=== PATIENT | female | born 1955 | race Asian ===

== ENCOUNTER → 2016-08-13 | Outpatient (CLI) | payer MEDICARE, MEDICAID | LOC: WI 13:35 | PROVIDERS: ATTEND Internal Medicine | DX: Z12.31 Encounter for screening mammogram for malignant neoplasm of breast (principal) | CPT/HCPCS: 77067; G0202 ==

== ENCOUNTER → 2017-08-21 | Outpatient (CLI) | payer MEDICARE, MEDICAID ==
--- NOTE | 2017-08-25 15:26 | WOMENS IMAGING REPORT ---
EXAM DESCRIPTION: 3D SCREENING MAMMO BILAT COMPLETED DATE/TIME: 08/21/2017 10:02 am REASON FOR STUDY: ROUTINE SCREENING;Z12.31 Z12.31 ENCNTR SCREEN MAMMOGRAM FOR MALIGNANT NEOPLASM OF HOOD COMPARISON: 2010 to 2016 TECHNIQUE: Standard craniocaudal and mediolateral oblique views of each breast recorded using digita l acquisition and breast tomosynthesis. LIMITATIONS: None. FINDINGS: No masses, calcifications or architectural distortion. No areas of suspicion. Read with the assistance of CAD. .[facility] - R2 Cenova Version 1.3 .[facility] Imaging - R2 Cenova Version 1.3 .[facility] - R2 Cenova Version 2.4 .[facility] [place] - R2 Cenova Version 2.4 .[facility] - R2 [employer] Specialist Version 9.2 IMPRESSION: NORMAL MAMMOGRAM. BIRADS 1. BREAST DENSITY: b. There are scattered areas of fibroglandular density. BIRAD: 1 NEGATIVE RECOMMENDATION: ROUTINE SCREENING COMMENT: The patient has been notified of the results by letter per SA requirements. Additional no tification policies are in place for contacting patient with suspicious or incomplete findings. Quality ID #225: The [employer] recommends an annual screening mammogram for women aged 40 years or over. This facility utilizes a reminder system to ensure that all patients receive reminder letters, and/or direct phone calls for appointments. This includes reminders for routine scr eening mammograms, diagnostic mammograms, or other Breast Imaging Interventions when appropriate. Th is patient will be placed in the appropriate reminder system. The [employer] [employer] (ACR) has developed recommendations for screening MRI of the breast s in certain patient populations, to be used in conjunction with mammography. Breast MRI surveillanc e may be appropriate for women with more than 20% lifetime risk of developing breast cancer as deter mined by genetic testing, significant family history of the disease, or history of mantle radiation f or Hodgkins Disease. ACR Practice Guidelines 2008. DBT Technology DBT is a type of tomographic mammography. With conventional mammography, overlapping breast tissue ma y make lesions difficult to detect, even with good compression. DBT uses an x-ray tube that rotates a round the breast, taking images at different angles. These images are then combined to create thin sl ices of the breast that the radiologist can view as a 3D reconstruction. The [employer] unit can perform full-field digital mammograms (2D imaging); or DBT (3D imaging); or both, in a combination mode that quickly performs both the mammogram and the tomosynthesis scan while the breast is still compressed. PQRS 6045F: Fluoroscopic imaging is not utilized for breast tomosynthesis. TECHNICAL DOCUMENTATION: FINDING NUMBER: (1) ASSESSMENT: (1) JOB ID: [id number] [employer]- All Rights Reserved Reading location - IP/workstation name: [email or web address] [id number]
== END ==
LOC: WI 09:35
PROVIDERS: ATTEND Internal Medicine
DX: Z12.31 Encounter for screening mammogram for malignant neoplasm of breast (principal)
CPT/HCPCS: 77063; 77067

== ENCOUNTER → 2017-11-03 | Outpatient (CLI) | payer MEDICARE, MEDICAID ==
--- NOTE | 2017-11-03 14:09 | RADIOLOGY REPORT (SQ) ---
EXAM DESCRIPTION: CT HEAD WITHOUT COMPLETED DATE/TIME: 11/03/2017 10:25 am REASON FOR STUDY: SYNCOPE AND COLLAPSE (R55) R55 SYNCOPE AND COLLAPSE COMPARISON: None. TECHNIQUE: Axial images acquired through the brain without intravenous contrast. Images reviewed wi th bone, brain and subdural windows. Additional sagittal and coronal reconstructions were generated. Images stored on PACS. All CT scanners at this facility use dose modulation, iterative reconstruction, and/or weight based d osing when appropriate to reduce radiation dose to as low as reasonably achievable (ALARA). [facility]: Dose Right [facility]: CareDose [facility]: Dose Right [facility]: Teradose 4D [facility]: [employer] RADIATION DOSE: CT Rad equipment meets quality standard of care and radiation dose reduction techniq ues were employed. CTDIvol: 48.6 mGy. DLP: 880 mGy-cm. mGy. LIMITATIONS: None. FINDINGS: VENTRICLES: Normal size and contour. CEREBRUM: No masses. No hemorrhage. No midline shift. No evidence for acute infarction. Normal gra y/white matter differentiation. No areas of low density in the white matter. CEREBELLUM: No masses. No hemorrhage. No alteration of density. No evidence for acute infarction. EXTRAAXIAL SPACES: No fluid collections. No masses. ORBITS AND GLOBE: No intra- or extraconal masses. Normal contour of globe without masses. CALVARIUM: No fracture. PARANASAL SINUSES: No fluid or mucosal thickening. SOFT TISSUES: No mass or hematoma. OTHER: Empty sella, an anatomic variant. IMPRESSION: NORMAL BRAIN CT WITHOUT CONTRAST. EVIDENCE OF ACUTE STROKE: NO. COMMENT: Quality ID # 436: Final reports with documentation of one or more dose reduction techniques (e.g., Automated exposure control, adjustment of the mA and/or kV according to patient size, use of iterative reconstruction technique) TECHNICAL DOCUMENTATION: JOB ID: [id number] [employer]- All Rights Reserved Reading location - IP/workstation name: [email or web address]
== END ==
LOC: RAD 09:55
PROVIDERS: ATTEND Physician Assistant Medical
DX: R55 Syncope and collapse (principal)
CPT/HCPCS: 70450

== ENCOUNTER 2019-09-29 08:49 | Day surgery (SDC) | payer MEDICARE, MEDICAID ==
[2019-09-23 12:08] LABS: HEMOGLOBIN 14.3 g/dL (12.0-15.5); MEAN CORPUSCULAR HEMOGLOBIN 30.7 pg (27.0-33.4); MEAN CORPUSCULAR HGB CONC 34.1 g/dL (32.0-36.0); MEAN CORPUSCULAR VOLUME 90 fl (80-97); PLATELET COUNT 237 10^3/uL (150-450); RED BLOOD COUNT 4.67 10^6/uL (3.72-5.28); RED CELL DISTRIBUTION WIDTH 13.1 % (11.5-14.0); WHITE BLOOD COUNT 6.1 10^3/uL (4.0-10.5)
[2019-09-23 12:35] LABS: ANION GAP 11 (5-19); BLOOD UREA NITROGEN 13 mg/dL (7-20); CALCIUM 9.6 mg/dL (8.4-10.2); CARBON DIOXIDE 22 mmol/L (22-30); CHLORIDE 102 mmol/L (98-107); GLUCOSE 179 mg/dL (75-110); POTASSIUM 4.7 mmol/L (3.6-5.0)
[~2019-09-29 08:49] MED LIST: ACETAMINOPHEN 325 MG TABLET PO PRN; LIDOCAINE 0.5% INJ-PF (5 MG/ML) 50 ML SDV SUBCUT PRN; RINGERS SOLUTION,LACTATED 1,000 ML IV PRN
[2019-09-29] MEDS ORDERED: FENTANYL CITRATE INJ/PF 100 MCG/2 ML AMPUL ONE (09:58)
[2019-09-29] MEDS ORDERED: PROPOFOL INJ 200 MG/20 ML VIAL IV ONE (09:58)
[2019-09-29] MEDS ORDERED: MIDAZOLAM 2 MG/2 ML INJ ONE (09:58)
[2019-09-29] MEDS ORDERED: ONDANSETRON HCL INJ/PF 4 MG/2 ML SDV ONE (09:58)
[2019-09-29] MEDS ORDERED: LIDOCAINE 2% INJ-PF (20 MG/ML) 10 ML AMPUL ONE (09:59)
[2019-09-29] MEDS ORDERED: LIDOCAINE 1%/EPINEPHRINE INJ 20 ML VIAL ONE ×2 (11:02→12:14)
[2019-09-29] MEDS ORDERED: CEFAZOLIN INJ 1 GM VIAL ONE ×2 (11:34→11:36)
[2019-09-29] MEDS ORDERED: MORPHINE SULFATE 10 MG/ML INJ IV PRN (12:04)
[2019-09-29] MEDS ORDERED: FENTANYL CITRATE INJ/PF 100 MCG/2 ML AMPUL IV PRN ×3 (12:04)
[2019-09-29] MEDS ORDERED: DIPHENHYDRAMINE HCL 50 MG/ML VIAL IV PRN (12:04)
[2019-09-29] MEDS ORDERED: MEPERIDINE HCL/PF INJ 25 MG/1 ML DISP.SYRIN IV PRN (12:04)
[2019-09-29] MEDS ORDERED: OXYCODONE-ACETAMINOPHEN 5-325 MG TABLET PO PRN ×2 (12:04)
[2019-09-29] MEDS ORDERED: PROMETHAZINE HCL INJ 25 MG/1 ML VIAL IV PRN ×2 (12:04)
--- NOTE | 2019-09-29 12:33 | Discharge Summary ---
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 Referrals: ANJELICA HUNTER MD [Primary Care Provider] - Discharge Diet: As Tolerated Discharge Activity: Activity As Tolerated Home Care Assistance: None Needed Report the Following to Your Physician Immediately: Shortness of Breath, Increase in Pain, Fever over 101 Degrees
--- NOTE | 2019-09-29 12:39 | Operative Report ---
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 Focused ultrasound of right neck. 2. Ultrasound directed insertion of right subclavian into right internal jugular vein single-chamber Npsrzs-e-Dwpm catheter. 3. Interpretation of intraoperative fluoroscopy. 4. Ultrasound directed core biopsy of a left axillary lymph node SURGEON: IRISH SALEH ANESTHESIA: LMAC TISSUE REMOVED OR ALTERED: Multiple cores left axilla COMPLICATIONS: None ESTIMATED BLOOD LOSS: Minimal INTRAOPERATIVE FINDINGS: See below PROCEDURE: The patient was taken to the preop holding her to the main operating room where LMAC anesthesia was induced. An OpSite was placed over the left chest wall metastatic skin deposits. The right neck, right chest wall were prepped draped sterile fashion with the patient's arms tucked to the side. Surgical plan and surgical timeout were conducted. Using focused ultrasound, we imaged to the right internal jugular vein was felt to be suitable for cannulation. The skin adjacent to the transducer was anesthetized with 1% plain lidocaine. A jona was made the skin with a #11 blade, and a micro needle and wire were threaded into the right internal jugular vein. A suitable site for placement of voice chosen the right subclavian position. The skin was anesthetized 1% plain lidocaine. A 3 and half centimeter incision was made with a #15 blade and a port pocket developed large enough to accommodate a single-chamber port was created. The catheter was then trimmed to the appropriate length and tunneled between the 2 incisions. The catheter was attached to the port with the plastic ring in the port tucked into the right subclavian pocket. Under fluoroscopic guidance, the microwire was switched over to a conventional 0.030 guidewire, then a 8 Gambian dilator and introducer sheath were threaded over the guidewire. The dilator and wire were removed, and the free end of the catheter threaded into the right internal jugular vein without difficulty. The strip away sheath was removed, leaving the catheter in good position with the tip in the deep superior vena cava. There is no evidence of ectopy and no evidence of catheter kinking at the neck. Images were retained for the record. The chamber was aspirated flushed with heparinized saline, dilute. Wounds closed with 3-0 Vicryl benzoin and Steri-Strips. Sponge and needle counts are correct. We now turned our attention to the left axilla. This was exposed, prepped with Betadine the skin with a variable frequency linear transducer. There were several areas in the mid to deep axilla along the chest wall demonstrating poorly circumscribed hypoechogenicity with irregularity of size anywhere from 1- 1/2 to 2-1/2 cm. Photos were taken for the record. These appear to be metastatic deposits within axillary lymph nodes. We therefore proceeded with ultrasound directed core biopsy. We anesthetized the skin adjacent to the transducer 1% plain lidocaine. A jona was made in the skin with a 11 blade, opened with a hemostat. Now using the mechanically activated Bard usable mammotome, 14-gauge, we obtained 3 cores of the most dominant, abnormal lymph node. The specimens were sent for permanent analysis to pathology. We did not place a clip marker as none was available. The procedure was terminated. Sterile dressings were applied. Patient tolerated the procedure well.
--- NOTE | 2019-09-29 14:45 | RADIOLOGY REPORT (SQ) ---
EXAM DESCRIPTION: FLUORO/CV PLACEMENT IMAGES COMPLETED DATE/TIME: 09/29/2019 1:46 pm REASON FOR STUDY[facility]O IN OR C50.912 MALIGNANT NEOPLASM OF UNSPECIF IED SITE OF LEFT FEMAL COMPARISON: None. FLUOROSCOPY TIME: 0.1 minute 3 images saved to PACS. TECHNIQUE: Intra-operative images acquired during surgical procedure to evaluate progress. NUMBER OF IMAGES: 3 LIMITATIONS: None. FINDINGS: Right-sided port tip overlies SVC. IMPRESSION: IMAGE(S) OBTAINED DURING PROCEDURE. COMMENT: Quality ID 145: Final reports for procedures using fluoroscopy that document radiation exp osure indices, or exposure time and number of fluorographic images (if radiation exposure indices are not available) Please consult full operative report of the attending physician for description of the procedure. TECHNICAL DOCUMENTATION: JOB ID: [id number] 2010 [employer]- All Rights Reserved Reading location - IP/workstation name: [email or web address]
[2019-09-29 15:20] VITALS: BP 121/79
--- NOTE | 2019-09-30 12:38 | EKG REPORT ---
SEVERITY:- BORDERLINE ECG - SINUS RHYTHM BORDERLINE T ABNORMALITIES, ANTERIOR LEADS : Confirmed by: Desi Gordillo 30-Sep-2019 12:38:06
== END 2019-09-29 14:56 | disposition home or self-care (01) ==
LOC: OROUT 08:49
PROVIDERS: ATTEND Surgery
DX: C50.912 Malignant neoplasm of unspecified site of left female breast (principal); C77.3 Secondary and unspecified malignant neoplasm of axilla and upper limb lymph nodes; Z17.0 Estrogen receptor positive status [ER+]; E11.9 Type 2 diabetes mellitus without complications; Z03.818 Encounter for observation for suspected exposure to other biological agents ruled out
CPT/HCPCS: 36415; 82962; 85027; 80048; 88342 ×2; 88341 ×2; 88305 ×2; 77001; 93005; 93010; 00532; 38500; 36561; C1752; C1788; U0003; J2250; J0690; J3010; J3490 ×2; J2405; J2704; J1642; C9803; 532; 87635

== ENCOUNTER → 2019-10-03 | Outpatient (CLI) | payer MEDICARE, MEDICAID ==
--- NOTE | 2019-10-03 10:46 | RADIOLOGY REPORT (SQ) ---
EXAM DESCRIPTION: CT CHEST WITH IMAGES COMPLETED DATE/TIME: 10/03/2019 10:03 am REASON FOR STUDY: BREAST CA C50.412 MALIG NEOPLASM OF UPPER-OUTER QUADRANT OF LEFT FEMAL COMPARISON: None. TECHNIQUE: CT scan of the chest performed using helical scanning technique with dynamic intravenous contrast injection. Images reviewed with lung, soft tissue and bone windows. Reconstructed coronal and sagittal MPR and MIP images reviewed. All images stored on PACS. All CT scanners at this facility use dose modulation, iterative reconstruction, and/or weight based d osing when appropriate to reduce radiation dose to as low as reasonably achievable (ALARA). [facility]: Dose Right [facility]: CareDose [facility]: Dose Right [facility]: Teradose 4D [facility]: [employer] Skin Care CONTRAST TYPE AND DOSE: 88 mL Omnipaque 350- low osmolar. RENAL FUNCTION: GFR > 60. LIMITATIONS: None. FINDINGS: LUNGS AND PLEURA: The trachea and main bronchi are patent. There are multiple 2-3 mm nodu les in the left upper lobe (for reference refer to images 24, 27, 29, 33 and 49 of series 6). There is no acute consolidation, ground-glass opacification or pleural effusion. HILAR AND MEDIASTINAL STRUCTURES: No adenopathy or mass. HEART AND VASCULAR STRUCTURES: Variant 4 vessel arch with a direct origin of the left vertebral arter y from the arch. There is no thoracic aortic dissection or aneurysm. There is no cardiomegaly or pe ricardial effusion. HARDWARE: The tip of the right IJ port terminates within the SVC. UPPER ABDOMEN: Refer to the separate report of the CT of the abdomen. THYROID AND OTHER SOFT TISSUES: 17 x 9 mm mass in the inner outer quadrant of the left breast and irr egular fat stranding around a nonenlarged left axillary lymph node (image 17 of series 2). There is no supraclavicular adenopathy. The 5 mm hypodense nodule in the posterior aspect of the left lobe of thyroid gland (image 6 of series 2) is nonspecific. BONES: No fracture or osseous lesion OTHER: No other finding. IMPRESSION: 1. 17 x 9 mm mass in the inner outer quadrant of the left breast. 2. Irregular fat stranding around a nonenlarged left axillary lymph node (image 17 of series 2). Th ere is no thoracic adenopathy. 3. Non-specific 2-3 mm nodules in the left upper lobe - attention on follow-up CTs is recommended. TECHNICAL DOCUMENTATION: JOB ID: [id number] Quality ID # 436: Final reports with documentation of one or more dose reduction techniques (e.g., Au tomated exposure control, adjustment of the mA and/or kV according to patient size, use of iterative reconstruction technique) 2010 [employer]- All Rights Reserved Reading location - IP/workstation name: [email or web address]
--- NOTE | 2019-10-03 12:15 | RADIOLOGY REPORT (SQ) ---
EXAM DESCRIPTION: CT ABD/PELVIS WITH IV ONLY IMAGES COMPLETED DATE/TIME: 10/03/2019 10:03 am REASON FOR STUDY: BREAST CA C50.412 MALIG NEOPLASM OF UPPER-OUTER QUADRANT OF LEFT FEMAL COMPARISON: None. TECHNIQUE: CT scan of the abdomen and pelvis performed using helical scanning technique with dynamic intravenous contrast injection. No oral contrast. Images reviewed with lung, soft tissue, and bone windows. Reconstructed coronal and sagittal MPR images reviewed. Delayed images for evaluation of the urinary system also acquired. All images stored on PACS. All CT scanners at this facility use dose modulation, iterative reconstruction, and/or weight based d osing when appropriate to reduce radiation dose to as low as reasonably achievable (ALARA). [facility]: Dose Right [facility]: CareDose [facility]: Dose Right [facility]: Teradose 4D [facility]: [employer] CONTRAST TYPE AND DOSE: 88 mL Omnipaque 350- low osmolar. RENAL FUNCTION: GFR > 60. RADIATION DOSE: CT Rad equipment meets quality standard of care and radiation dose reduction techniq ues were employed. CTDIvol: 7.8 - 11.5 mGy. DLP: 1403 mGy-cm. LIMITATIONS: None. FINDINGS: LOWER CHEST: Refer to the separate report of the CT of the chest. LIVER: The relative hypoattenuation of the hepatic parenchyma compared to the splenic parenchyma on t he portal venous phase is suggestive of underlying hepatic steatosis. The portal veins are patent. There is no hepatic mass. SPLEEN: No splenic mass or splenomegaly. PANCREAS: No acute abnormality of the pancreas. GALLBLADDER: No abnormality that is apparent on CT. ADRENAL GLANDS: No mass or asymmetry. RIGHT KIDNEY AND URETER: No solid masses. No calcifications. No hydronephrosis or hydroureter. LEFT KIDNEY AND URETER: No solid masses. No calcifications. No hydronephrosis or hydroureter. AORTA AND VESSELS: No aneurysm or dissection of the abdominal aorta. RETROPERITONEUM: No retroperitoneal adenopathy, hemorrhage or mass. BOWEL AND PERITONEAL CAVITY: No bowel obstruction, bowel wall thickening or pericolonic/ perienteric inflammation. No mesenteric adenopathy, free intracranial fluid or mesenteric/ omental inflammation. APPENDIX: Surgically absent. PELVIS: Surgical clips in the adnexa - correlate for prior tubal ligation. The urinary bladder is pa rtially distended. There is no pelvic mass. ABDOMINAL WALL: Solid ovoid heterogeneous mass in the right groin that measures 3.6 x 2.5 cm. BONES: Degenerative spondylosis and facet arthropathy of the lumbar spine with grade 1 retrolisthesis of L2 relative to L3, L3 relative to L4, and L4 relative to L5. There is no fracture or osseous les ion. OTHER: No other finding. IMPRESSION: 1. No acute intra-abdominal abnormality. 2. Solid ovoid heterogeneous mass in the right groin that measures 3.6 x 2.5 cm. The mass could repr esent a metastatic lymph node and further evaluation with ultrasound/biopsy is recommended. TECHNICAL DOCUMENTATION: JOB ID: [id number] Quality ID # 436: Final reports with documentation of one or more dose reduction techniques (e.g., Au tomated exposure control, adjustment of the mA and/or kV according to patient size, use of iterative reconstruction technique) 2010 [employer]- All Rights Reserved Reading location - IP/workstation name: [email or web address]
--- NOTE | 2019-10-03 14:20 | RADIOLOGY REPORT (SQ) ---
EXAM DESCRIPTION: NM WHOLE BODY BONE SCAN IMAGES COMPLETED DATE/TIME: 10/03/2019 1:52 pm REASON FOR STUDY: BREAST CA C50.412 MALIG NEOPLASM OF UPPER-OUTER QUADRANT OF LEFT FEMAL COMPARISON: CT of the chest, abdomen and pelvis with contrast from 10/03/2019. RADIONUCLIDE AND DOSE: 20.9 millicuries Tc99m MDP. The route of agent administration: Intravenous. ADDITIONAL DRUGS AND DOSES: None. TECHNIQUE: Routine delayed images at 3 hour post radionuclide injection acquired of the bony skeleto n including anterior and posterior whole-body projections and additional focused images as needed. LIMITATIONS: None. FINDINGS: BONES: No scintigraphic evidence of osseous metastases. The distribution of the uptake ar ound the shoulders, right knee and feet is typical of degenerative osteoarthrosis. KIDNEYS: Symmetric excretion without obstruction. OTHER: No other finding. IMPRESSION: No scintigraphic evidence of osseous metastases. COMMENT: Quality measure 147: Current bone scan is compared with any available plain radiographs, p rior bone scans, and CT/MRI. TECHNICAL DOCUMENTATION: JOB ID: [id number] 2010 [employer]- All Rights Reserved Reading location - IP/workstation name: [email or web address]
== END ==
LOC: RAD 09:53
PROVIDERS: ATTEND Internal Medicine
DX: C50.412 Malignant neoplasm of upper-outer quadrant of left female breast (principal); R19.00 Intra-abdominal and pelvic swelling, mass and lump, unspecified site
CPT/HCPCS: 82565; 78306; 71260; 74177; A9503; Q9969

== ENCOUNTER → 2019-10-05 | Outpatient (CLI) | payer MEDICARE, MEDICAID ==
--- NOTE | 2019-10-05 14:37 | RADIOLOGY REPORT (SQ) ---
EXAM DESCRIPTION: NM MUGA REST IMAGES COMPLETED DATE/TIME: 10/05/2019 12:19 pm REASON FOR STUDY: BREAST CANCER-CARDIOTOXIC CHEMO PLANNED C50.412 MALIG NEOPLASM OF UPPER-OUTER MADAN DRANT OF LEFT FEMAL Z08 ENCNTR FOR FOLLOW-UP EXAM AFTER TRTMT FOR MALIGNANT NEOP COMPARISON: None. RADIONUCLIDE AND DOSE: 25 mCi technetium 99m labeled red blood cells The route of agent administration: Intravenous TECHNIQUE: Following administration of the radionuclide, gated images of the heart are obtained in t hree projections. Left ventricular functional analysis performed. LIMITATIONS: None. FINDINGS: LEFT VENTRICULAR FUNCTION: EJECTION FRACTION: 59%. END-DIASTOLIC VOLUME: 78 mL. END-SYSTOLIC VOLUME: 29 mL. WALL MOTION: No focal wall motion abnormalities. OTHER: No other significant finding. IMPRESSION: Left ventricular ejection fraction estimated at 59% TECHNICAL DOCUMENTATION: JOB ID: [id number] 2010 [employer]- All Rights Reserved Reading location - IP/workstation name: [email or web address]
== END ==
LOC: RAD 10:44
PROVIDERS: ATTEND Physician Assistant Medical
DX: Z13.6 Encounter for screening for cardiovascular disorders (principal); C50.412 Malignant neoplasm of upper-outer quadrant of left female breast
CPT/HCPCS: 78472; A9560; Q9969

== ENCOUNTER → 2019-10-14 | Outpatient (CLI) | payer MEDICARE, MEDICAID ==
--- NOTE | 2019-10-14 18:00 | RADIOLOGY REPORT (SQ) ---
EXAM DESCRIPTION: U/S NON-OB PELVIS LTD W/O DOP IMAGES COMPLETED DATE/TIME: 10/14/2019 5:37 pm REASON FOR STUDY: C50.412 MALIG NEOPLASM OF UPPER-OUTER QUADRANT OF LEFT FEMALE BREAST C50.412 JUDITH G NEOPLASM OF UPPER-OUTER QUADRANT OF LEFT FEMALmenopausal patient. LMP is unknown. COMPARISON: None. TECHNIQUE: Dynamic and static grayscale images acquired of the pelvis via transabdominal approach an d recorded on PACS. Additional selected color Doppler and spectral images recorded. LIMITATIONS: None. FINDINGS: UTERUS: Contour normal. No mass. ENDOMETRIAL STRIPE: No focal or generalized thickening. No masses. CERVIX: Not seen. RIGHT OVARY AND DOPPLER: Ovary not seen. LEFT OVARY AND DOPPLER: Ovary not seen. FREE FLUID: None noted. OTHER: There is a 2.4 x 1.6 x 0.7 cm lymph node in the right groin. MEASUREMENTS: UTERUS: 7 x 4.6 x 4 cm. ENDOMETRIAL STRIPE: 4 mm. RIGHT OVARY: Not seen. LEFT OVARY: Not seen. IMPRESSION: Normal appearing uterus and endometrium. Ovaries were not seen. Lymph node in the righ t groin. TECHNICAL DOCUMENTATION: JOB ID: [id number] 2010 [employer]- All Rights Reserved Rev-09/11 Reading location - IP/workstation name: [email or web address]
== END ==
LOC: RAD 16:24
PROVIDERS: ATTEND Internal Medicine
DX: C50.412 Malignant neoplasm of upper-outer quadrant of left female breast (principal)
CPT/HCPCS: 76857

== ENCOUNTER 2020-02-22 07:01 | Observation (INO) | payer MEDICARE, MEDICAID ==
[2020-02-17 11:58] LABS: HEMATOCRIT 37.1 % (36.0-47.0); HEMOGLOBIN 12.9 g/dL (12.0-15.5); MEAN CORPUSCULAR HEMOGLOBIN 32.7 pg (27.0-33.4); MEAN CORPUSCULAR HGB CONC 34.8 g/dL (32.0-36.0); MEAN CORPUSCULAR VOLUME 94 fl (80-97); PLATELET COUNT 333 10^3/uL (150-450); RED BLOOD COUNT 3.95 10^6/uL (3.72-5.28); RED CELL DISTRIBUTION WIDTH 14.6 % (11.5-14.0); WHITE BLOOD COUNT 5.4 10^3/uL (4.0-10.5)
[2020-02-17 12:34] LABS: ANION GAP 9 (5-19); BLOOD UREA NITROGEN 11 mg/dL (7-20); CALCIUM 9.4 mg/dL (8.4-10.2); CARBON DIOXIDE 26 mmol/L (22-30); CHLORIDE 102 mmol/L (98-107); GLUCOSE 199 mg/dL (75-110); POTASSIUM 4.2 mmol/L (3.6-5.0)
[~2020-02-22 07:01] MED LIST changes: -ACETAMINOPHEN 325 MG TABLET PO PRN; +CEFAZOLIN 1 GM/D5W RTU 1 GM/50 ML RTUPB IV ONE; +CEFAZOLIN 1 GM/D5W RTU 1 GM/50 ML RTUPB IV PRN; +FENTANYL CITRATE INJ/PF 250 MCG/5 ML AMPULE ONE; -LIDOCAINE 0.5% INJ-PF (5 MG/ML) 50 ML SDV SUBCUT PRN; +MIDAZOLAM 2 MG/2 ML INJ ONE; +MORPHINE SULFATE 10 MG/ML INJ ONE; +PROPOFOL INJ 200 MG/20 ML VIAL IV ONE; -RINGERS SOLUTION,LACTATED 1,000 ML IV PRN; +SUGAMMADEX SODIUM 200 MG/2 ML SDV IV ONE
[2020-02-22] MEDS ORDERED: MICROFIBRILLAR COLLAGEN 1 GM PACK ONE (07:26)
[2020-02-22] MEDS ORDERED: LIDOCAINE 1%/EPINEPHRINE INJ 20 ML VIAL ONE (07:26)
[2020-02-22] MEDS ORDERED: DIPHENHYDRAMINE HCL 50 MG/ML VIAL IV PRN (10:00)
[2020-02-22] MEDS ORDERED: OXYCODONE-ACETAMINOPHEN 5-325 MG TABLET PO PRN ×2 (10:00)
[2020-02-22] MEDS ORDERED: PROMETHAZINE HCL INJ 25 MG/1 ML VIAL IV PRN ×2 (10:00)
[2020-02-22] MEDS ORDERED: FENTANYL CITRATE INJ/PF 100 MCG/2 ML AMPUL IV PRN ×3 (10:00)
[2020-02-22] MEDS ORDERED: MORPHINE SULFATE 10 MG/ML INJ IV PRN (10:00)
[2020-02-22] MEDS ORDERED: MEPERIDINE HCL/PF INJ 25 MG/1 ML DISP.SYRIN IV PRN (10:00)
[2020-02-22] MEDS ORDERED: NORMAL SALINE 1000 ML 1,000 ML IV PRN (12:25)
--- NOTE | 2020-02-22 12:38 | Operative Report ---
Operative Report DATE OF SURGERY: 02/22/20 PREOPERATIVE DIAGNOSIS: 1. Stage IIIb metastatic left breast cancer with chest wall implants. 2. Status post neoadjuvant chemotherapy POSTOPERATIVE DIAGNOSIS: Same OPERATION: 1. Left modified radical mastectomy. 2. Drainage of left chest wall SURGEON: IRISH SOSA FLATLOCK SEWING MACHINE OPERATOR: RUSS APARICIO ANESTHESIA: GA TISSUE REMOVED OR ALTERED: Left breast and axillary contents COMPLICATIONS: None ESTIMATED BLOOD LOSS: 75 cc INTRAOPERATIVE FINDINGS: See below PROCEDURE: Patient is seen in the preop holding area where the left breast was marked. She was then taken to the main operating room and general anesthesia was induced. Left arm was abducted, patient's left axilla, left upper arm, left chest wall all prepped and draped in sterile fashion Surgical plan and surgical timeout were conducted. The left anterior chest, at the 12 o'clock position was significant for sleep biopsied metastatic implants, some smaller post neoadjuvant chemotherapy and 1 or 2 appearing recently. We marked on the skin intention for a wide mastectomy to include the's multiple skin implants. The skin was anesthetized with 1% plain lidocaine. The superior incision was made with a #10 blade, and a high, wide. Skin flap was raised extending from the sternal tissue medially to the infraclavicular level superiorly, and to the tapering of the pectoralis major muscle. The inferior was made a #10 blade, and the inferior skin flap taken down to the serratus anterior muscle inferior laterally, rectus fascia medially. The left breast was now taken off of the chest wall with electrocautery, including the pectoralis major fascia. Once this was accomplished, we install the [employer] retracting system for optimal exposure to the left axilla. We continue to work in a circumferential fashion mobilizing the lateral superior and lateral inferior skin flaps. The pectoralis major muscle was elevated, and the level of dissection of the left axilla undertaken. Of note the patient received preoperative neoadjuvant chemotherapy, throughout the entire axillary dissection there was a significant amount of fibrotic tissue, rendering the dissection challenging. Nonetheless we took the axillary fat off of the axillary sheath, fully exposing the axillary vein. Laterally we brought the section level down to the lateral border of the latissimus dorsi muscle. Medially the axillary fat was taken off of the chest wall. We now mobilized the fatty tissue around the inferior edge of the pectoralis minor muscle, elevating the minor muscle, sparing is neurovascular pedicle, and harvesting all of the fatty tissue and lymphoid tissue. Of note there was no significant palpable adenopathy. The high axillary fatty tissue was tenacious, requiring curing the residual fat with clips. We swept the tissue off of the axillary vein, sided the small tributaries to the axillary fat, and preserved the thoracodorsal neurovascular bundle limits entirety. Again a lot of fibrous tissue here rendering the dissection somewhat tedious. Likewise, the long thoracic nerve was identified and preserved throughout its course. Eventually, working again in a circumferential fashion, we were able to elevate the axillary fat off of the anterior surface of the latissimus dorsi muscle, off of the neurovascular pedicles previously described, and eventually freeing up the entire axilla. The specimen was sent in 1 bucket labeled left breast and axillary contents in toto. With no neuromuscular blockade on board, we did gently pinch the long thoracic and dorsal nerves and the respective muscles twitched. We placed 2 large Mike drains in the inferior skin flap laterally, secured them to the skin with 2-0 Prolene suture, trimmed to the appropriate length and hooked them to bulb grenades. We now inspected the skin flaps for viability and they were felt to be healthy and nonthreatened. We checked for bleeding and small vessels were cauterized as encountered. We pay particular attention to the axilla, ensured there was no mechanical bleeding. We now brought the patient's left arm into a more anatomic position, and mobilized the superior and inferior skin flaps medially to reduce tension and the eventual closure. The superior and inferior skin flaps were now approximated with multiple 2-0 Vicryl sutures, and intervening segments closed with 3-0 Vicryl suture. After flap approximation, the inferior skin flap although a little dusky, was felt to be viable. Sponge and needle counts are correct. Skin was approximated with skin glue, patient was successfully extubated taken to the recovery room in stable condition. The physician patient clerical assistant, Ms. Graff, provided assistance during this case by: Assisting with retracting tissue, instillation of local anesthesia and closure of skin incisions.
[2020-02-22] MEDS ORDERED: ACETAMINOPHEN 1,000 MG/100 ML RTUPB IV ONE ×2 (13:50→23:04)
[2020-02-22] MEDS ORDERED: PHENYLEPHRINE HCL INJ/PF 10 MG/1 ML SDV ONE (14:45)
[2020-02-22] MEDS ORDERED: SUCCINYLCHOLINE CHLORIDE INJ 200 MG/10 ML VIAL ONE (14:45)
[2020-02-22] MEDS ORDERED: DIPHENHYDRAMINE HCL 50 MG/ML VIAL ONE (14:45)
[2020-02-22] MEDS ORDERED: ONDANSETRON HCL INJ/PF 4 MG/2 ML SDV ONE (14:45)
[2020-02-22] MEDS ORDERED: DEXAMETHASONE SOD PHOSPHATE INJ 4 MG/1 ML VIAL ONE (14:45)
[2020-02-22] MEDS: OXYCODONE-ACETAMINOPHEN 5-325 MG TABLET PO PRN ×2 (16:39→23:11)
[2020-02-22] MEDS: ACETAMINOPHEN INJ/PF 1000 MG/100 ML SDV IV SCH ×2 (17:46→23:11)
[2020-02-22] MEDS: CEFAZOLIN 1 GM/D5W RTU 1 GM/50 ML RTUPB IV SCH (17:59)
[2020-02-23] MEDS: CEFAZOLIN 1 GM/D5W RTU 1 GM/50 ML RTUPB IV SCH (00:01)
[2020-02-23] MEDS ORDERED: ACETAMINOPHEN 1,000 MG/100 ML RTUPB IV ONE (06:05)
[2020-02-23] MEDS: OXYCODONE-ACETAMINOPHEN 5-325 MG TABLET PO PRN (06:17)
[2020-02-23] MEDS: ACETAMINOPHEN INJ/PF 1000 MG/100 ML SDV IV SCH (06:18)
--- NOTE | 2020-02-23 07:36 | PDOC DISCHARGE SUMMARY ---
General - Admit/Disc Date/PCP Admission Date/Primary Care Provider: ANJELICA HUNTER MD Discharge Date: 02/23/20 - Discharge Diagnosis Final Diagnosis: metastatic left breast cancer s/p NAC - Assessment Summary: pt. admitted for LMRM; procedure performed by Dr. Wilson, 2 drains placed. Did well, kept overnight,discharged in am ; mild to moderate bruising along left lateral skin flaps. Drains working Will d/c home on PO Toradol; educated pt. on left am mobilization and drain care RTC OSC in one week - Additional Information Resuscitation Status: Full Code Discharge Activity: Activity As Tolerated Referrals: ANJELICA HUNTER MD [Primary Care Provider] - Home Medications: Metformin HCl [Glucophage] 1,000 mg PO DAILY 04/02/11 Travoprost 2.5 ml OP QHS 02/17/20 History of Present Illiness History of Present Illness: KATY FELIPE is a 65 year old female Physical Exam Vital Signs: Temp Pulse Resp BP Pulse Ox 98.2 F 62 18 97/55 L 96 02/23/20 04:31 02/23/20 04:31 02/23/20 04:31 02/23/20 04:31 02/23/20 04:31 Intake & Output 02/22/20 02/23/20 02/24/20 06:59 06:59 06:59 Intake Total 2080 Output Total 265 Balance 1815 Weight 73.4 kg Results Laboratory Results: WBC 5.4 10^3/uL (4.0-10.5) 02/17/20 11:28 RBC 3.95 10^6/uL (3.72-5.28) 02/17/20 11:28 Hgb 12.9 g/dL (12.0-15.5) 02/17/20 11:28 Hct 37.1 % (36.0-47.0) 02/17/20 11:28 MCV 94 fl (80-97) 02/17/20 11:28 MCH 32.7 pg (27.0-33.4) 02/17/20 11:28 MCHC 34.8 g/dL (32.0-36.0) 02/17/20 11:28 RDW 14.6 % (11.5-14.0) H 02/17/20 11:28 Plt Count 333 10^3/uL (150-450) 02/17/20 11:28 Sodium 137.1 mmol/L (137-145) 02/17/20 11:28 Potassium 4.2 mmol/L (3.6-5.0) 02/17/20 11:28 Chloride 102 mmol/L (98-107) 02/17/20 11:28 Carbon Dioxide 26 mmol/L (22-30) 02/17/20 11:28 Anion Gap 9 (5-19) 02/17/20 11:28 BUN 11 mg/dL (7-20) 02/17/20 11:28 Creatinine 0.47 mg/dL (0.52-1.25) L 02/17/20 11:28 Est GFR ( Amer) > 60 (>60) 02/17/20 11:28 Est GFR (MDRD) Non-Af > 60 (>60) 02/17/20 11:28 Glucose 199 mg/dL (75-110) H 02/17/20 11:28 POC Glucose 186 mg/dL (70-110) H 02/22/20 13:49 Calcium 9.4 mg/dL (8.4-10.2) 02/17/20 11:28 COVID-19 Source See comment 02/17/20 11:29 COVID-19 (ANTONY) Not Detected (Not Detect) 02/17/20 11:29
[2020-02-23 08:08] VITALS: BP 108/59
== END 2020-02-23 09:08 | disposition home or self-care (01) ==
LOC: OROUT 07:01 → 2N 12:25 → OROUT 14:20 → 2N 14:20 → OROUT 02-23 09:08 → 2N 02-23 09:08
PROVIDERS: ADMIT Surgery; ATTEND Surgery
DX: C50.812 Malignant neoplasm of overlapping sites of left female breast (principal); C77.3 Secondary and unspecified malignant neoplasm of axilla and upper limb lymph nodes; E11.42 Type 2 diabetes mellitus with diabetic polyneuropathy; I87.2 Venous insufficiency (chronic) (peripheral); M19.90 Unspecified osteoarthritis, unspecified site; Z03.818 Encounter for observation for suspected exposure to other biological agents ruled out; Z79.84 Long term (current) use of oral hypoglycemic drugs; Z92.21 Personal history of antineoplastic chemotherapy
CPT/HCPCS: 19307; 99281; 36415; 82962; 85027; 80048; 88309 ×2; 94799; 00404; G0378 ×2; U0003; J2250; J0690 ×2; J1100; J1200; J3010; J3490 ×2; A9270 ×2; J2370; J0330; J2405; J7030; J2704; J0131 ×2; C9803; 404; 87635; J2270